=== PATIENT | female | born 1990 | race African-American/Black ===

== ENCOUNTER 2017-01-29 16:22 | Emergency (ER) | payer MEDICAID ==
[~2017-01-29] VITALS: Ht 170.2 cm; Wt 172.4 kg
[~2017-01-29 16:22] MED LIST: ALBU2TAB4 IN; LORA10CA7 PO
[2017-01-29] MEDS ORDERED: IPRATROPIUM BROM 0.5 MG/2.5ML INH SOL NEB ONE ×2 (17:15→21:15)
[2017-01-29] MEDS ORDERED: methylPREDNISolone SOD SUCC 125 MG/2 ML VL IV ONE (17:15)
[2017-01-29] MEDS ORDERED: cefTRIAXone 1GM/50ML D5W 50 ML IV ONE (17:15)
[2017-01-29] MEDS ORDERED: ALBUTEROL SULF 2.5 MG/0.5ML(0.5%) NEB SOLN NEB ONE ×2 (17:15→21:15)
[2017-01-29 17:38] LABS: Basophils # (auto) 0 uL; Basophils % (auto) 0.2 % (0.0-2.0); Eosinophils # (auto) 0.3 uL; Eosinophils % (auto) 5.4 % (0.0-7.0); Hematocrit 39.8 % (36.0-46.0); Hemoglobin 13.1 g/dL (12.2-16.2); Lymphocytes # (auto) 0.8 uL; Lymphocytes % (auto) 12.3 % (10.0-50.0); Mean Corpuscular Hemoglobin 29.6 pg (28.0-32.0); Mean Corpuscular Hgb Conc. 32.8 g/dL (32.0-36.0); Mean Corpuscular Volume 90.1 fL (80.0-100.0); Monocytes # (auto) 0.4 uL; Monocytes % (auto) 6.3 % (0.0-12.0); Neutrophils # (auto) 4.7 uL; Neutrophils % (auto) 75.8 % (37.0-80.0); Nucleated Red Blood Cells % 0.2 %; Platelet Count (auto) 325 10^3/uL (140-450); Red Cell Distribution Width 14.3 % (11.6-16.0); White Blood Cell 6.3 10^3/uL (4.4-10.8)
[2017-01-29 17:50] LABS: Albumin 3.2 g/dL (3.4-5.0); BUN/Creatinine Ratio 6.2; Bilirubin, Total 0.3 mg/dL (0.2-1.0); Calcium 8.4 mg/dL (8.5-10.1); Potassium 3.8 mmol/L (3.5-5.1); Total Protein 8.2 g/dL (6.4-8.2)
[2017-01-29 22:05] LABS: Urine Bilirubin Negative (Negative); Urine Blood Negative /uL (Negative); Urine Color Yellow (Yellow); Urine Glucose Normal (Normal); Urine Ketone Negative (Negative); Urine Mucus FEW (None Seen); Urine Nitrite Negative (Negative); Urine RBC 1 /hpf (0 - 4); Urine Squamous Epithelial Cell FEW /hpf (<5)
[2017-01-30 01:05] VITALS: BP 136/94
[2017-01-30] MEDS ORDERED: ALBUTEROL SULF 2.5 MG/0.5ML(0.5%) NEB SOLN NEB ONE (01:15)
[2017-01-30] MEDS ORDERED: IPRATROPIUM BROM 0.5 MG/2.5ML INH SOL NEB ONE (01:15)
== END 2017-01-30 02:13 | disposition home or self-care (01) ==
LOC: EDBD 16:22 → ER 16:35
DX: J45.901 Unspecified asthma with (acute) exacerbation (principal); J06.9 Acute upper respiratory infection, unspecified; M25.561 Pain in right knee; I10 Essential (primary) hypertension
CPT/HCPCS: 36415; 71010; 80053; 81001; 85025; 87040; 94640; 96365; 96375; 99285; J0696; J2930

== ENCOUNTER 2018-12-18 04:35 | Emergency (ER) | payer MEDICAID ==
[~2018-12-18] VITALS: Ht 170.2 cm; Wt 172.4 kg
[2018-12-18] MEDS ORDERED: ALBUTEROL SULF 2.5 MG/0.5ML(0.5%) NEB SOLN NEB ONE ×4 (05:00→11:45)
[2018-12-18] MEDS ORDERED: IPRATROPIUM BROM 0.5 MG/2.5ML INH SOL NEB ONE ×4 (05:00→11:45)
[2018-12-18 05:31] LABS: Basophils # (auto) 0 uL; Basophils % (auto) 0.3 % (0.0-2.0); Eosinophils # (auto) 0.6 uL; Eosinophils % (auto) 10.9 % (0.0-7.0); Hematocrit 37.8 % (36.0-46.0); Hemoglobin 12.7 g/dL (12.2-16.2); Lymphocytes # (auto) 1.3 uL; Lymphocytes % (auto) 24.6 % (10.0-50.0); Mean Corpuscular Hemoglobin 30.4 pg (28.0-32.0); Mean Corpuscular Hgb Conc. 33.7 g/dL (32.0-36.0); Mean Corpuscular Volume 90.3 fL (80.0-100.0); Monocytes # (auto) 0.4 uL; Monocytes % (auto) 7.7 % (0.0-12.0); Neutrophils % (auto) 56.5 % (37.0-80.0); Nucleated Red Blood Cells % 0.2 %; Platelet Count (auto) 277 10^3/uL (140-450); Red Blood Cells 4.18 10^6/uL (4.0-5.20); Red Cell Distribution Width 15.2 % (11.8-14.3); White Blood Cell 5.3 10^3/uL (4.4-10.8)
[2018-12-18 05:38] LABS: Potassium 3.6 mmol/L (3.5-5.1)
[2018-12-18 05:40] LABS: INR 0.95 (0.9-1.15); Partial Thromboplastin Time 26.5 sec (23.64-32.05)
[2018-12-18 05:42] LABS: BUN/Creatinine Ratio 11.5; Calcium 8.6 mg/dL (8.5-10.1)
[2018-12-18 05:44] LABS: Bilirubin, Total 0.3 mg/dL (0.2-1.0); Total Protein 7.7 g/dL (6.4-8.2)
[2018-12-18] MEDS ORDERED: PROMETHAZINE HCL 25 MG/ML 1ML IV ONE ×2 (06:15→06:45)
[2018-12-18] MEDS ORDERED: cefTRIAXone 1GM/50ML D5W 50 ML IV ONE (06:15)
[2018-12-18] MEDS ORDERED: methylPREDNISolone SOD SUCC 125 MG/2 ML VL IV ONE (07:00)
[2018-12-18 09:26] LABS: Urine Bacteria FEW /hpf (None Seen); Urine Blood Negative /uL (Negative); Urine Mucus FEW (None Seen); Urine Specific Gravity 1.033 (1.001-1.035); Urine WBC 1 /hpf (0 - 5)
[2018-12-18 13:00] VITALS: BP 123/74
== END 2018-12-18 13:58 | disposition home or self-care (01) ==
LOC: ER 04:35
DX: O99.511 Diseases of the respiratory system complicating pregnancy, first trimester (principal); J45.901 Unspecified asthma with (acute) exacerbation; Z3A.01 Less than 8 weeks gestation of pregnancy
CPT/HCPCS: 36415; 80053; 81001; 84702; 85025; 85610; 85730; 94640; 96365; 96375; 99285; J0696; J2550; J2930; J7611; J7644

== ENCOUNTER 2019-01-02 21:45 | Emergency (ER) | payer MEDICAID ==
[~2019-01-02] VITALS: Ht 170.2 cm; Wt 184.6 kg
[2019-01-02] MEDS ORDERED: ALBUTEROL SULF 2.5 MG/0.5ML(0.5%) NEB SOLN HHN STA (21:48)
[2019-01-02] MEDS ORDERED: ALBUTEROL SULF 2.5 MG/0.5ML(0.5%) NEB SOLN ONE (21:49)
[2019-01-02] MEDS ORDERED: IPRATROPIUM BROM 0.5 MG/2.5ML INH SOL ONE (21:50)
[2019-01-02] MEDS ORDERED: IPRATROPIUM BROM 0.5 MG/2.5ML INH SOL NEB ONE ×2 (22:00)
[2019-01-02] MEDS ORDERED: ALBUTEROL SULF 2.5 MG/0.5ML(0.5%) NEB SOLN NEB ONE (22:00)
[2019-01-02 22:45] LABS: Basophils # (auto) 0 uL; Basophils % (auto) 0.1 % (0.0-2.0); Eosinophils # (auto) 1.1 uL; Eosinophils % (auto) 14.6 % (0.0-7.0); Hematocrit 40.3 % (36.0-46.0); Hemoglobin 13.4 g/dL (12.2-16.2); Lymphocytes # (auto) 1.6 uL; Lymphocytes % (auto) 21.1 % (10.0-50.0); Mean Corpuscular Hemoglobin 30.3 pg (28.0-32.0); Mean Corpuscular Hgb Conc. 33.2 g/dL (32.0-36.0); Mean Corpuscular Volume 91.5 fL (80.0-100.0); Monocytes # (auto) 0.5 uL; Neutrophils # (auto) 4.3 uL; Neutrophils % (auto) 57.2 % (37.0-80.0); Nucleated Red Blood Cells % 0.1 %; Platelet Count (auto) 285 10^3/uL (140-450); Red Blood Cells 4.41 10^6/uL (4.0-5.20); Red Cell Distribution Width 14.7 % (11.8-14.3); White Blood Cell 7.5 10^3/uL (4.4-10.8)
[2019-01-02] MEDS ORDERED: methylPREDNISolone SOD SUCC 125 MG/2 ML VL IV ONE (22:45)
[2019-01-02 23:03] LABS: Alanine Aminotransferase 23 U/L (13-56); Albumin 2.9 g/dL (3.4-5.0); Anion Gap 7 (5-15); Aspartate Aminotransferase 9 U/L (15-37); Blood Urea Nitrogen 7 mg/dL (7-18); Calcium 8.7 mg/dL (8.5-10.1); Carbon Dioxide 29 mmol/L (21-32); Chloride 103 mmol/L (98-107); GFR African American 98 mL/min; GFR Non-African American 81 mL/min; Glucose 100 mg/dL (74-106); Potassium 3.9 mmol/L (3.5-5.1); Sodium 139 mmol/L (136-145)
[2019-01-02 23:08] LABS: Alkaline Phosphatase 102 U/L (45-117); Bilirubin, Total 0.3 mg/dL (0.2-1.0); Total Protein 7.8 g/dL (6.4-8.2)
[2019-01-03 02:00] VITALS: BP 114/67
== END 2019-01-03 02:50 | disposition home or self-care (01) ==
LOC: ER 21:49
DX: O99.511 Diseases of the respiratory system complicating pregnancy, first trimester (principal); J45.909 Unspecified asthma, uncomplicated; Z3A.13 13 weeks gestation of pregnancy
CPT/HCPCS: 36415; 76801; 80053; 84484; 84702; 85025; 93005; 94644; 96374; 99285; J2930; J7611; J7644

== ENCOUNTER 2019-04-01 20:37 | Inpatient (IN) | payer MEDICAID ==
[~2019-04-01] VITALS: Ht 162.6 cm; Wt 186.0 kg
[2019-04-01] MEDS ORDERED: methylPREDNISolone SOD SUCC 125 MG/2 ML VL IV ONE (20:45)
[2019-04-01] MEDS ORDERED: SODIUM CHLORIDE 0.9% 1,000 ML IV ONE ×2 (20:45→21:45)
[2019-04-01 21:51] LABS: Basophils # (auto) 0 uL; Basophils % (auto) 0.3 % (0.0-2.0); Eosinophils # (auto) 0.4 uL; Eosinophils % (auto) 5.1 % (0.0-7.0); Hematocrit 35.5 % (36.0-46.0); Hemoglobin 11.7 g/dL (12.2-16.2); Lymphocytes # (auto) 1.2 uL; Lymphocytes % (auto) 16.1 % (10.0-50.0); Mean Corpuscular Hemoglobin 29.5 pg (28.0-32.0); Mean Corpuscular Hgb Conc. 32.8 g/dL (32.0-36.0); Monocytes # (auto) 0.5 uL; Monocytes % (auto) 7.2 % (0.0-12.0); Neutrophils # (auto) 5.2 uL; Neutrophils % (auto) 71.3 % (37.0-80.0); Platelet Count (auto) 276 10^3/uL (140-450); Red Blood Cells 3.95 10^6/uL (4.0-5.20); Red Cell Distribution Width 14.3 % (11.8-14.3); White Blood Cell 7.3 10^3/uL (4.4-10.8)
[2019-04-01 22:06] LABS: Albumin 2.3 g/dL (3.4-5.0); Calcium 7.5 mg/dL (8.5-10.1); Potassium 3.1 mmol/L (3.5-5.1)
[2019-04-01 22:10] LABS: BUN/Creatinine Ratio 8.1; Bilirubin, Total 0.2 mg/dL (0.2-1.0); Total Protein 6.8 g/dL (6.4-8.2)
[2019-04-01 23:04] LABS: Urine Bacteria NONE SEEN /hpf (None Seen); Urine Blood Negative /uL (Negative); Urine Mucus FEW (None Seen); Urine Specific Gravity 1.004 (1.001-1.035); Urine WBC 1 /hpf (0 - 5)
[2019-04-01] MEDS ORDERED: IPRATROPIUM BROM 0.5 MG/2.5ML INH SOL NEB ONE (23:30)
[2019-04-01] MEDS ORDERED: ALBUTEROL SULF 2.5 MG/0.5ML(0.5%) NEB SOLN NEB ONE (23:30)
[2019-04-02] MEDS ORDERED: ALBUTEROL SULF 2.5 MG/0.5ML(0.5%) NEB SOLN NEB ONE ×3 (00:15→05:00)
[2019-04-02] MEDS ORDERED: IPRATROPIUM BROM 0.5 MG/2.5ML INH SOL NEB ONE ×3 (00:15→05:00)
[2019-04-02] MEDS ORDERED: cefTRIAXone 1GM/50ML D5W 50 ML IV ONE (00:45)
[2019-04-02] MEDS ORDERED: ONDANSETRON HCL 4 MG/2 ML VIAL IV PRN (01:15)
[2019-04-02] MEDS ORDERED: ACETAMINOPHEN 325 MG TAB PO PRN (01:15)
[2019-04-02] MEDS ORDERED: MAGNESIUM SULFATE 1GM/100ML 100 ML IV ONE (01:15)
[2019-04-02 01:45] VITALS: BP 136/41
[2019-04-02] MEDS ORDERED: AZITHROMYCIN 500MG/ 250ML 250 ML IV ONE (02:00)
--- NOTE | 2019-04-02 04:10 | NUR ---
portable monitor to PTS bedside in ER heart tones obtained 145-150's, 15x15 acceleration noted, no decels noted. pt denies ucs or cramping at this time. no UC'S noted on monitoring 0450 Dr Sheets notified in ER for s/p asthma exacerbation, gest 27.6, EFM reviewed. no new orders received
[2019-04-02] MEDS ORDERED: methylPREDNISolone SOD SUCC 40 MG/ML VL IV ONE (05:00)
[2019-04-02] MEDS ORDERED: LORazepam 2MG/ML-1ML VIAL IV ONE (05:00)
[2019-04-02] MEDS: ALBUTEROL SULF 2.5 MG/0.5ML(0.5%) NEB SOLN NEB SCH ×3 (05:17→18:25)
[2019-04-02] MEDS: IPRATROPIUM BROM 0.5 MG/2.5ML INH SOL NEB SCH ×3 (05:17→18:25)
[2019-04-02] MEDS: methylPREDNISolone SOD SUCC 40 MG/ML VL IV SCH ×3 (06:07→22:00)
[2019-04-02 07:18] LABS: Basophils # (auto) 0 uL; Eosinophils # (auto) 0 uL; Hematocrit 38.9 % (36.0-46.0); Hemoglobin 12.8 g/dL (12.2-16.2); Lymphocytes # (auto) 0.3 uL; Lymphocytes % (auto) 4.5 % (10.0-50.0); Mean Corpuscular Hemoglobin 29.9 pg (28.0-32.0); Mean Corpuscular Hgb Conc. 32.9 g/dL (32.0-36.0); Mean Corpuscular Volume 90.8 fL (80.0-100.0); Monocytes # (auto) 0.1 uL; Monocytes % (auto) 0.8 % (0.0-12.0); Neutrophils # (auto) 6.8 uL; Neutrophils % (auto) 94.7 % (37.0-80.0); Platelet Count (auto) 287 10^3/uL (140-450); Red Blood Cells 4.29 10^6/uL (4.0-5.20); Red Cell Distribution Width 14.4 % (11.8-14.3); White Blood Cell 7.2 10^3/uL (4.4-10.8)
[2019-04-02 07:32] LABS: BUN/Creatinine Ratio 4.6; Calcium 8.2 mg/dL (8.5-10.1); Potassium 4.1 mmol/L (3.5-5.1)
[2019-04-02 07:55] LABS: INR < 0.93 (0.9-1.15); Partial Thromboplastin Time 23.7 sec (23.64-32.05)
[2019-04-02 15:40] VITALS: BP 123/96
--- NOTE | 2019-04-02 15:40 | NUR ---
Admit to [place] K[place] AG[place]ILARadmitted to [place] via gur[place] on painter, and portable 02. Patient transfered to bed, connected to unit monitoring and oxygen, and weighed by bedscale. Patient oriented to Dirk schuster RN, unit, room, bed, and unit policies regarding patient care and visiting hours. All questions and concerns addressed, patient verbalized understanding. NOTE:
[2019-04-02 16:00] VITALS: BP 132/92
--- NOTE | 2019-04-02 16:29 | NUR ---
SPUTUM CULTURE SENT VIA BULLET
--- NOTE | 2019-04-02 16:40 | NUR ---
DR. WILSON AT BEDSIDE
[2019-04-02] MEDS ORDERED: BECL80AE11 IN (18:15)
[2019-04-02 20:00] VITALS: BP 128/77
--- NOTE | 2019-04-02 20:29 | NUR ---
Pt stable at start of shift. But at approx 2009 pt stated burning to urethra and seemed in distress stating that it felt like the catheter popped out and was leaking but had severe burning. Pt assessed, catheter was in place but baboon was deflated and catheter advanced just in case. For burning issue a wet wash cloth was used to cleanse area where the burning was occurring and KY jelly was applied for moisturize and dilute any remaining iodine from insertion of the catheter. Pt states relief and is now resting comfortably.
--- NOTE | 2019-04-02 20:37 | NUR ---
Pt states feeling waking up gasping for air and waking in a panic type state. Pt also states previous issues and has an appointment for a sleep study after baby is born in July. Bipap machine noticed at bedside for possible later treatment. Will continue to monitor.
[2019-04-02] MEDS: cefTRIAXone 1GM/50ML D5W 50 ML IV SCH (21:00)
[2019-04-03 00:06] VITALS: BP 131/86
[2019-04-03 04:00] VITALS: BP 131/76
--- NOTE | 2019-04-03 04:23 | NUR ---
L&D RN at bedside for heart tone monitoring.
[2019-04-03 04:50] LABS: Basophils # (auto) 0 uL; Eosinophils # (auto) 0 uL; Hematocrit 35.8 % (36.0-46.0); Hemoglobin 11.8 g/dL (12.2-16.2); Lymphocytes # (auto) 0.5 uL; Lymphocytes % (auto) 5.2 % (10.0-50.0); Mean Corpuscular Hemoglobin 29.5 pg (28.0-32.0); Mean Corpuscular Volume 89.6 fL (80.0-100.0); Monocytes # (auto) 0.4 uL; Monocytes % (auto) 4.3 % (0.0-12.0); Neutrophils # (auto) 8.7 uL; Neutrophils % (auto) 90.5 % (37.0-80.0); Platelet Count (auto) 295 10^3/uL (140-450); Red Blood Cells 3.99 10^6/uL (4.0-5.20); Red Cell Distribution Width 14.1 % (11.8-14.3); White Blood Cell 9.6 10^3/uL (4.4-10.8)
--- NOTE | 2019-04-03 04:57 | NUR ---
portable monitor to [place] bedside 20 minutes of heart tones obtained, baseline FHR 155, no decels noted. pt denies ucs or cramping at this time. no UC'S noted on external monitor.
[2019-04-03 05:08] LABS: Calcium 8.2 mg/dL (8.5-10.1); Potassium 4.3 mmol/L (3.5-5.1)
[2019-04-03] MEDS: ALBUTEROL SULF 2.5 MG/0.5ML(0.5%) NEB SOLN NEB SCH ×4 (06:15→21:58)
[2019-04-03] MEDS: IPRATROPIUM BROM 0.5 MG/2.5ML INH SOL NEB SCH ×4 (06:15→21:58)
[2019-04-03] MEDS: methylPREDNISolone SOD SUCC 40 MG/ML VL IV SCH ×3 (06:53→21:40)
--- NOTE | 2019-04-03 07:50 | NUR ---
OPENING Report received from Shelby Cruz RN. Care initiated and initial assessment completed.
[2019-04-03 07:55] VITALS: BP 130/80
--- NOTE | 2019-04-03 09:00 | NUR ---
NAVNEET/SKIN CARE Patient requested warm towels to clean her face and for navneet area. Assisted patient with supplies and patient able to clean self accordingly. Ambulation not tested but bathing ability requires little assistance.
[2019-04-03 11:50] VITALS: BP 122/84
[2019-04-03 16:00] VITALS: BP 136/88
--- NOTE | 2019-04-03 17:00 | NUR ---
BEDSIDE Dr. Breonna Lopez bedside. New orders received.
--- NOTE | 2019-04-03 17:08 | NUR ---
HERMINIO Martin is sending a nurse up to do heart monitoring.
--- NOTE | 2019-04-03 17:26 | NUR ---
HEART MONITORING heart rate checked twice, 130 and 140, by Enedelia GASPAR.
--- NOTE | 2019-04-03 17:26 | NUR ---
RETAIL MERCHANDISING COORDINATOR PIOTR AND MYSELF AT PATIENT BEDSIDE IN ROOM [address] [place] AND DID FHR WITH DOPPLER . HEART RATE WAS 130 BPM AND ALSO DONE ONE MORE TIME AND GOT 140 BPM. PATIENT HAS A PULSE OX ON AND HEART RATE ON MOTHER IS 86 BPM .NOTED MOVEMENT BY VISUAL ABD MOVEMENT AND PALPATED ABD AREA. PATIENT STATES SHE ALSO FEELS BABY MOVING. PATIENTS HUBERT HINES NOTIFIED.
--- NOTE | 2019-04-03 19:22 | NUR ---
CLOSING Report given to Pedrito GASPAR.
--- NOTE | 2019-04-03 19:23 | NUR ---
Open Note Received Report form day shift Rn. Patient is AOx4 on 4L oxymizer stating 98% spo2. in no sign of distress. patient request for Tylenol for head ache. NSR 97 BP 116/79. per patient request, had female RN Cherry to check "proper placement" of catheter. Left AC 20 g iv clean dry and intact. patient is 7 month , no reports of abdominal discomfort. call light placed within reach and instructed patient to call if needing assistance. bed locked and in lowest position.
[2019-04-03 20:00] VITALS: BP 116/79
--- NOTE | 2019-04-03 21:00 | NUR ---
Night Care Patient at bedside doing P.M care independently.
[2019-04-03] MEDS: cefTRIAXone 1GM/50ML D5W 50 ML IV SCH (21:01)
[2019-04-04] VITALS: BP 137/79
--- NOTE | 2019-04-04 01:45 | NUR ---
L&D nurse at bedside assessing patient and FHR.
--- NOTE | 2019-04-04 02:05 | NUR ---
portable monitor to [place] bedside 20 minutes of heart tones obtained, baseline FHR 145, periodic decels noted. pt denies ucs or cramping at this time. no UC'S noted on external monitor. Broken tracing noted due to audible and pt reported movement. Pt states "now I'll know she's always awake at 2am". Pt resting in bed with eyes closed, semi rajput's on tele monitor on 4L oxymizer. Yesterday AM while in [place] to monitor FHR, this RN notified hSelby GASPAR that this gravid pt does not have OB consult but has monitor ordered. Shelby RN stated she will endorse to day shift that a consult is needed. As of now, pt has not had OB consult ordered. Intake Rn Olivia Berg in [place], states he will inform primary RN to asks hospitalist for OB consult.
[2019-04-04 04:00] VITALS: BP 115/78
--- NOTE | 2019-04-04 04:00 | NUR ---
residual check 0ml residual
[2019-04-04] MEDS: IPRATROPIUM BROM 0.5 MG/2.5ML INH SOL NEB SCH ×4 (05:51→22:19)
[2019-04-04] MEDS: ALBUTEROL SULF 2.5 MG/0.5ML(0.5%) NEB SOLN NEB SCH ×4 (05:51→22:19)
[2019-04-04] MEDS: methylPREDNISolone SOD SUCC 40 MG/ML VL IV SCH ×3 (06:07→21:57)
[2019-04-04 06:18] LABS: Basophils # (auto) 0 uL; Eosinophils # (auto) 0 uL; Hematocrit 37.2 % (36.0-46.0); Hemoglobin 12.1 g/dL (12.2-16.2); Lymphocytes # (auto) 0.7 uL; Lymphocytes % (auto) 8.5 % (10.0-50.0); Mean Corpuscular Hemoglobin 29.6 pg (28.0-32.0); Mean Corpuscular Hgb Conc. 32.6 g/dL (32.0-36.0); Mean Corpuscular Volume 90.7 fL (80.0-100.0); Monocytes # (auto) 0.5 uL; Monocytes % (auto) 5.5 % (0.0-12.0); Neutrophils # (auto) 7.5 uL; Nucleated Red Blood Cells % 0.1 %; Platelet Count (auto) 304 10^3/uL (140-450); Red Cell Distribution Width 14.1 % (11.8-14.3); White Blood Cell 8.7 10^3/uL (4.4-10.8)
[2019-04-04 07:06] LABS: Potassium 4.3 mmol/L (3.5-5.1)
[2019-04-04 07:12] LABS: BUN/Creatinine Ratio 11.9; Calcium 8.3 mg/dL (8.5-10.1)
--- NOTE | 2019-04-04 07:20 | NUR ---
OPENING NOTE RECEIVED SHIFT REPORT AND ASSUMED CARE OF PT FROM ITALIA GASPAR
[2019-04-04 07:50] VITALS: BP 127/92
[2019-04-04 11:50] VITALS: BP 133/85
[2019-04-04 16:00] VITALS: BP 144/81
--- NOTE | 2019-04-04 17:36 | NUR ---
strip completed at bedside FHR: 150
--- NOTE | 2019-04-04 17:39 | NUR ---
LABOR AND SFDC DEVELOPER AT BEDSIDE TO MONITOR HEART TONES FOR THIS SHIFT
--- NOTE | 2019-04-04 19:10 | NUR ---
CLOSING NOTE SHIFT REPORT GIVEN AND CARE ENDORSED TO VANESSA GASPAR
--- NOTE | 2019-04-04 19:30 | NUR ---
Opening Shift Note Report received. Care initiated and initial assessment completed. Pt denies any pain at this time. POC initiated.
[2019-04-04 19:49] VITALS: BP 123/84
[2019-04-04] MEDS: cefTRIAXone 1GM/50ML D5W 50 ML IV SCH (20:54)
--- NOTE | 2019-04-04 21:30 | NUR ---
Elimination Pt requests to get up to bedside commode. Assisted out of bed without any incidence. pt urinated 500 ccs of urine. pt helped back to bed, tolerated well.
--- NOTE | 2019-04-04 23:19 | NUR ---
Called personal consultant dr palmer for primary. New order received for OBGYN consult.
[2019-04-05] VITALS (7 sets, daily range): BP systolic 107–130; BP diastolic 69–83
--- NOTE | 2019-04-05 00:11 | NUR ---
L&D nurse at bedside assessing patient and FHR.
--- NOTE | 2019-04-05 00:44 | NUR ---
NST performed. FHR of 145 broken tracing noted. this RN manually holds ultrasound. No UCs traced. Patient sleeping at this time. No distress noted.
[2019-04-05 05:22] LABS: Basophils # (auto) 0 uL; Basophils % (auto) 0.1 % (0.0-2.0); Eosinophils # (auto) 0 uL; Hematocrit 37.4 % (36.0-46.0); Hemoglobin 12.2 g/dL (12.2-16.2); Lymphocytes # (auto) 0.8 uL; Lymphocytes % (auto) 8.8 % (10.0-50.0); Mean Corpuscular Hemoglobin 29.5 pg (28.0-32.0); Mean Corpuscular Hgb Conc. 32.6 g/dL (32.0-36.0); Mean Corpuscular Volume 90.6 fL (80.0-100.0); Monocytes # (auto) 0.4 uL; Monocytes % (auto) 4.9 % (0.0-12.0); Neutrophils # (auto) 7.8 uL; Neutrophils % (auto) 86.2 % (37.0-80.0); Platelet Count (auto) 299 10^3/uL (140-450); Red Blood Cells 4.13 10^6/uL (4.0-5.20); Red Cell Distribution Width 14.2 % (11.8-14.3); White Blood Cell 9.1 10^3/uL (4.4-10.8)
[2019-04-05 05:43] LABS: BUN/Creatinine Ratio 12.5; Calcium 8.8 mg/dL (8.5-10.1); Potassium 4.1 mmol/L (3.5-5.1)
[2019-04-05] MEDS: IPRATROPIUM BROM 0.5 MG/2.5ML INH SOL NEB SCH ×4 (06:04→22:30)
[2019-04-05] MEDS: ALBUTEROL SULF 2.5 MG/0.5ML(0.5%) NEB SOLN NEB SCH ×4 (06:04→22:30)
[2019-04-05] MEDS: methylPREDNISolone SOD SUCC 40 MG/ML VL IV SCH ×3 (06:12→21:49)
--- NOTE | 2019-04-05 07:16 | NUR ---
AT BEDSIDE. STATES TO CONTINUE WITH MONITORING Q SHIFT
--- NOTE | 2019-04-05 07:55 | NUR ---
Dr Gray at bedside, updated on patient's status. Patient seen and examined. No new orders at this time.
--- NOTE | 2019-04-05 08:00 | NUR ---
Opening Shift Note Assumed care of patient, awake and alert. No S/S of distress/SOB or pain. Patient on 3 LPM oxygen via oxymizer, saturation 94%. See interventions for complete assessment. Bed locked on low position, side rails up x2, bed alarms on at all times, call armando within reach, instructed on POC and to call for assist PRN, will continue to monitor for changes Q1hr and PRN.
--- NOTE | 2019-04-05 09:00 | NUR ---
Patient ambulated one lap around nurse station using walker with Anibal PT, fall precautions in placed. Patient tolerated well.
--- NOTE | 2019-04-05 11:30 | NUR ---
NUTRITION ASSESSMENT NOTES Please refer to link notes of nutrition screen form filed under the intervention section of the plan of care for further details. Est. Needs based on AdBW (83 kg): 1650 kcal to 2050 kcal (20-25 kcal/kgAdBW), 83 gms to 100 gms pro (1.0-1.2 gms/kgAdBW). Will continue to monitor pertinent labs and reassess nutrient need prn Thank you. Addendum: 04/05/19 at [address] Amended: Links added.
--- NOTE | 2019-04-05 12:45 | NUR ---
Orders received from Dr Abbott: monitoring- 20 min strip daily in the AM; once pt is 28 weeks gestation, NST.
--- NOTE | 2019-04-05 14:00 | NUR ---
Called Dr Abbott via cell phone, tracing reviewed: 150 baseline, minimal to moderate variability noted with no UC's; orders received to continue current plan of care.
--- NOTE | 2019-04-05 17:05 | NUR ---
Dr Sabrina Kay at bedside, updated on patient's status, informed patient saturation 94% to 96% at 3 LPM oxygen via nasal cannula. Patient seen and examined. Received verbal order to decrease oxygen to 2 LPM. Will continue to monitor. Plan to do BLE ultrasound as well to rule out DVT. Orders read back and verified. Will carry out.
--- NOTE | 2019-04-05 19:55 | NUR ---
Opening Shift Note Assumed care of patient, awake and alert. No S/S of distress/SOB or pain. Complete physical assessment done: see interventions. Instructed on POC and to call for assist PRN, will continue to monitor for changes Q1hr and PRN.
[2019-04-05] MEDS: cefTRIAXone 1GM/50ML D5W 50 ML IV SCH (20:38)
--- NOTE | 2019-04-05 22:32 | NUR ---
PT REFUSED NOC CPAP AT THIS TIME. SPO2 94% ON 2L NC, HR 82, RR 14. MED NEB TX ADMINISTERED VIA MASK. NO ADVERSE REACTION NOTED. CPAP AT BEDSIDE. WILL CONTINUE WITH NEXT SCHEDULED TX.
[2019-04-06 00:55] VITALS: BP 121/70
[2019-04-06 04:00] VITALS: BP 116/72
[2019-04-06] MEDS: ALBUTEROL SULF 2.5 MG/0.5ML(0.5%) NEB SOLN NEB SCH ×2 (06:13→11:57)
[2019-04-06] MEDS: IPRATROPIUM BROM 0.5 MG/2.5ML INH SOL NEB SCH ×4 (06:13→22:16)
[2019-04-06] MEDS: methylPREDNISolone SOD SUCC 40 MG/ML VL IV SCH ×3 (06:22→21:32)
--- NOTE | 2019-04-06 06:26 | NUR ---
END OF SHIFT PATIENT REMAINED STABLE THROUGHOUT THE NIGHT. NO COMPLAINTS OF PAIN OR SOB. CURRENTLY PATIENT IS RESTING IN BED WITH EYES CLOSED RECEIVING MED NEB TX. NO SIGNS OF PAIN OR SOB. HR 95, POX 98%, RR 18. CALL LIGHT WITHIN EASY REACH OF PATIENT. WILL ENDORSE CARE TO DAY SHIFT AND CONTINUE MONITORING.
[2019-04-06 07:55] VITALS: BP 137/86
--- NOTE | 2019-04-06 08:00 | NUR ---
Opening Shift Note Assumed care of patient, awake and alert. No S/S of distress/SOB or pain. Patient on 2 LPM oxygen via nasal cannula, saturation 96%. See interventions for complete assessment. Bed locked on low position, side rails up x2, bed alarms on at all times, call armando within reach, instructed on POC and to call for assist PRN, will continue to monitor for changes Q1hr and PRN.
--- NOTE | 2019-04-06 10:30 | NUR ---
Patient ambulated around nurse station using walker with Surendra PT, fall precautions in place, patient tolerated one lap.
--- NOTE | 2019-04-06 11:49 | NUR ---
Dr Kay at bedside, updated on patient's status. Informed patient's HR goes up to 120's to 130's. Patient seen and examined. Received verbal order to consult Dr Badillo for Cardiology. Orders read back and verified. Will carry out.
[2019-04-06 11:55] VITALS: BP 126/82
--- NOTE | 2019-04-06 11:57 | NUR ---
RT NOTE: PT FOUND ON 2L NC CONNECTED TO FREE STANDING TANK IN ROOM THAT WAS NEARLY EMPTY. WHEN ASKED HOW LONG SHE HAD BEEN ON THE TANK, SHE STATED SINCE FINISHING WITH PHYSICAL THERAPY AROUND 2HRS PRIOR. NC PLUGGED BACK ONTO BUBBLE HUMIDIFIER ON THE WALL. WILL CONTINUE TO MONITOR.
--- NOTE | 2019-04-06 13:26 | NUR ---
Dr Badillo at bedside, updated on patient's status. Patient seen and examined. Received verbal order to switch Albuterol to Xopenex and do Echocardiogram. Verbal orders read back and verified. Will carry out.
--- NOTE | 2019-04-06 15:10 | NUR ---
Dr Gray at bedside, updated on patient's status. Patient seen and examined. No new orders at this time.
[2019-04-06 16:00] VITALS: BP 139/83
--- NOTE | 2019-04-06 16:25 | NUR ---
Echocardiogram being done at bedside.
[2019-04-06] MEDS: LEVALBUTEROL HCL 1.25 MG/3 ML NEB NEB SCH ×2 (19:05→22:17)
[2019-04-06 20:00] VITALS: BP 147/91
--- NOTE | 2019-04-06 21:31 | NUR ---
SPOKE WITH JULITO GASPAR FROM L&D PER JULITO SHE WILL BE UP FOR MONITORING
--- NOTE | 2019-04-06 21:44 | NUR ---
JULITO Huff&D RN AT BEDSIDE
--- NOTE | 2019-04-06 22:04 | NUR ---
Monitorin- FHT's 150's minimal-moderate variability, apropriate for gestational age with no UC's. PT declines feeling any cramping or UC's. 2223- DMarycruz HENDRICKS notified PT in [place] for asthma exacerbation. This RN performed NST, FHT's 150's minimal to moderate variability with no UC's. Continue plan of care.
[2019-04-07] VITALS: BP 126/75
[2019-04-07 04:00] VITALS: BP 117/71
--- NOTE | 2019-04-07 04:45 | NUR ---
OXYGEN SATURATION NOTED TO BE LOW 82% PATIENT NOTED TO BE SLEEPING WITHOUT OXYGEN 2LNC PLACED AND EDUCATED PATIENT ON KEEPING OXYGEN ON THROUGHOUT THE NIGHT OXYGENATION IMPROVED POX 94% CONTINUE MONITORING
[2019-04-07] MEDS: methylPREDNISolone SOD SUCC 40 MG/ML VL IV SCH ×2 (05:17→14:53)
--- NOTE | 2019-04-07 05:41 | NUR ---
PATIENT STATUS/ROUNDS PATIENT CURRENTLY AWAKE IN BED WATCHING TV AND EATING A SANDWICH. NO SIGNS OF DISTRESS OR SOB. CONTINUES TO BE ON 2L NC WIT SPO2 96%. SPOKE TO PATIENT REGARDING LOW OXYGENATION DURING SLEEP AND BENEFITS OF CPAP. PER PATIENT SHE HAS SLEEP STUDY SCHEDULED AFTER DISCHARGE. CONTINUE MONITORING.
[2019-04-07] MEDS: LEVALBUTEROL HCL 1.25 MG/3 ML NEB NEB SCH ×3 (06:35→18:13)
[2019-04-07] MEDS: IPRATROPIUM BROM 0.5 MG/2.5ML INH SOL NEB SCH ×3 (06:35→18:13)
--- NOTE | 2019-04-07 07:28 | NUR ---
CARE ENDORSED TO DAY SHIFT RN
--- NOTE | 2019-04-07 07:50 | NUR ---
Opening Shift Note Assumed care of patient, awake and alert. No S/S of distress/SOB or pain, patient stated that she's feeling better today, no SOB noted, able to sleep, on O2 NC 2 LPM, lung sound clear both sites. Instructed on POC and to call for assist PRN, will continue to monitor for changes Q1hr and PRN.
[2019-04-07 08:00] VITALS: BP 140/94
--- NOTE | 2019-04-07 08:30 | NUR ---
Patient connected to O2 Tank while walking to the restroom, no complaining SOB noted, then went back to the bed, sitting at the edge of the bed for having breakfast.
--- NOTE | 2019-04-07 11:00 | NUR ---
Patient walked to the restroom while connecting to O2 NC 2 LPM, no complaining SOB noted. Will continue to monitor and care.
[2019-04-07 11:55] VITALS: BP 112/72
--- NOTE | 2019-04-07 14:25 | NUR ---
Called and talked to Dr. Scar MD made aware that Dr. Hill transferred service to Dr. Abbott and Dr. Abbott didn't accept that. [place] any made aware and left the message to Dr. Hill.
--- NOTE | 2019-04-07 14:48 | NUR ---
PT 1st attempt patient was too tired to get out of bed. 2nd attempt patient asked to take the day off from physical therapy. HUBERT Ramos was notified. Addendum: 04/07/19 at 1449 by WANG SOLO PTT Amended: Links added.
--- NOTE | 2019-04-07 15:00 | NUR ---
Received a call from Dr. Hill, will tray room air when resting, keep O2 saturation > 92% and will see Room air when having activity. Patient made aware with the plan and agreed.
--- NOTE | 2019-04-07 15:35 | NUR ---
When patient resting on the bed with Room air, O2 saturation 93-94%, still coughing sometimes, HR 95 /min, no complaining SOB noted.
--- NOTE | 2019-04-07 15:40 | NUR ---
Patient went back from the restroom, walking without O2, HR around 120 /min, O2 saturation 91-93%. Resting for 5 minutes, her HR went back to 95 /min, O2 saturation around 92-95%, will continue to monitor and care.
[2019-04-07 15:55] VITALS: BP 129/82
--- NOTE | 2019-04-07 16:02 | NUR ---
Dr. Hill at the bedside, called and left the message to Dr. Gray regarding plan of care for D/C home if Dr. Gray agree.
--- NOTE | 2019-04-07 16:50 | NUR ---
Dr. Abbott made aware about the discharge planning, patient is clear to D/C home by Dr. Abbott.
--- NOTE | 2019-04-07 16:51 | NUR ---
Still waiting to receive a call from Dr. Gray and Dr. Badillo.
[2019-04-07] MEDS ORDERED: IPRIH IN (16:59)
[2019-04-07] MEDS ORDERED: LEVAAER IN (16:59)
[2019-04-07] MEDS ORDERED: PRE5T PO (17:02)
--- NOTE | 2019-04-07 17:30 | NUR ---
Dr. Gray at the bedside, seen and examined patient at this time, patient is clear to D/C home, already spoke to Dr. Hill about the steroid dose and frequency. Will waiting for eval.
--- NOTE | 2019-04-07 18:07 | NUR ---
Received a call from Dr. Sergio MD made aware that still waiting a call back from Dr. Badillo. Dr. Gray and Dr. Abbott already agreed with D/C home with HH. If Dr. Badillo call back and agree with D/C home with HH, patient is also can D/C home today per Dr. Hill because the case advocate will taking care and arrange HH for patient by tomorrow.
--- NOTE | 2019-04-07 18:20 | NUR ---
Dee Huff&[place] RN at the bedside for FHT, her also at the bedside.
--- NOTE | 2019-04-07 18:30 | NUR ---
Received a call back from Dr. Justino MD stated that patient is clear to D/C home.
[2019-04-07 18:50] VITALS: BP 129/82
--- NOTE | 2019-04-07 18:53 | NUR ---
Heart Monitorin- FHT's 150's with minimal-moderate variability, appropriate for gestational age. No contractions noted. PT declines cramping and or feeling contractions. 1904- Dr. Abbott notified of PT NST, no UC's noted, no further orders received.
--- NOTE | 2019-04-07 19:10 | NUR ---
Called the [facility] in [place] ([phone]) for the prescriptions.
--- NOTE | 2019-04-07 19:30 | NUR ---
Called and talked to Dr. Sergio MD ststed that already called in the [facility] in [facility] for Prescriptions. Called and double checked ([phone]), her medications are ready to lease picker, patient made aware.
--- NOTE | 2019-04-07 20:14 | NUR ---
Discharge instructions given as ordered. Encourage to follow up with PMD as instructed. All questions and concerns addressed. Patient verbalized understanding. Medication reconciliation form completed and copy given to patient. IV removed with catheter intact, pressure dressing applied, tubbs catheter removed. Patient taken to vehicle via wheelchair with all personal belongings, accompanied by staff, her family waiting in the lobby. No distress noted at time of departure.
--- NOTE | 2019-04-07 20:25 | NUR ---
Reminded pt to go to [facility] on [address] on the way home. Stable at time of discharge. Left unit via WC with Staff and friend at bedside. No S/S of distress. IV and bands removed. Richard RN did discharge instructions.
== END 2019-04-07 20:25 | disposition home health service (06) | DRG 566 ==
LOC: EDUNIT# 20:37 → ER 20:37 → EDBD 20:37 → OVERFLOW 20:38 → DOU IN ICU 04-02 15:37
PROVIDERS: ADMIT Hospitalist; ATTEND Internal Medicine
DX: O99.513 Diseases of the respiratory system complicating pregnancy, third trimester (principal); J96.01 Acute respiratory failure with hypoxia; J45.52 Severe persistent asthma with status asthmaticus; E66.01 Morbid (severe) obesity due to excess calories; O99.343 Other mental disorders complicating pregnancy, third trimester; F41.9 Anxiety disorder, unspecified; J01.00 Acute maxillary sinusitis, unspecified; O99.213 Obesity complicating pregnancy, third trimester; Z3A.28 28 weeks gestation of pregnancy; E87.6 Hypokalemia; Z82.49 Family history of ischemic heart disease and other diseases of the circulatory system; Z82.3 Family history of stroke; Z83.3 Family history of diabetes mellitus
CPT/HCPCS: 36415; 36600; 80048; 80053; 81001; 81025; 82150; 82805; 83690; 83735; 83880; 85025; 85379; 85610; 85730; 87070; 87205; 87804; 93005; 93306; 93970; 94640; 94644; 94660; 96365; 96368; 96375; 96376; 97116; 97530; G0378; J0696